=== PATIENT | female | born 1945 | race Caucasian/White ===

== ENCOUNTER → 2016-08-12 | Outpatient (CLI) | payer MEDICARE, OTHER ==
[~2016-08-12] MED LIST: ALPRAZOLAM0.25 MG PO; ASPIRIN 325MG325 MG PO; CLINORIL GENER150 MG PO; CLINORIL GENER200 MG PO; DIOVAN80 MG PO; FLAGYL500 MG PO; LEVAQUIN500 MG PO; LINZESS145 MCG PO; LOSARTAN POTASS50 MG PO; PENNSAID 2% TP; PLAVIX75 MG PO; SERTRALINE25 MG PO; SIMVASTATIN10 MG PO; SIMVASTATIN40 MG PO; [UNRECOGNIZED DRUG - OTHER] PO
--- NOTE | 2016-08-18 10:13 | RADIOLOGY REPORT PS360 ---
EXAM: CT LUNG LOW DOSE WO CONTRAST COMPARISON: None HISTORY: 70-year-old female with greater than 30 pack-year smoking history asymptomatic ORDERING PHYSICIAN: Orlando Mccoy MD PATIENT AGE: 70 years TECHNIQUE: The exam was performed on a GE Light Speed [address] scanner using 2.96 mGy CTDI. A low dose helical CT CHEST was performed on a multi-detector scanner The LDCT was performed in a facility that meets the criteria for the screening program. Data regarding this exam was submitted to ACR which is an approved registry. The order for this exam indicates that it came as a result of a lung cancer screening counseling shard decision-making visit that included all the elements required of such a visit including smoking cessation. The radiologist interpreting this exam meets the [facility] criteria for the LDCT lung cancer screening program. The exam is reported using the Lung-RADS classification scale and reported to the ACR registry. NOTE: THIS STUDY WAS PERFORMED FOR THE SPECIFIC PURPOSES OF LUNG CANCER SCREENING AND IS NOT AN ALTERNATIVE TO DIAGNOSTIC CHEST CT. RADIATION DOSE: CTDI vol(CT dose Index-volume) = 2.96mG DLP (Dose Length Product) = 128.47 mGcm FINDINGS: There are moderate centrilobular emphysematous changes with scattered calcified granulomas. Pleural-based nodular lesion involving the right lower lobe posteriorly at 3 x 1.2 cm. Soft tissue component of this lesion is somewhat more prominent than when compared to the previous exam. Previously this measured 2.7 x 0.8 cm. No suspicious nodules on the left. There are scattered small nodes in the mediastinum. Upper abdominal images are unremarkable. IMPRESSION: 1. Lung RADS Category: 4A suspicious. Pleural-based nodule in the left lower lobe appears slightly more prominent compared to the previous exam. 3 month follow-up recommended. 2. Other findings: Emphysema with pulmonary fibrotic changes and evidence of old granulomatous disease RECOMMENDATIONS: [address] of the chest without and with contrast
== END ==
LOC: RAD 12:36
DX: Z87.891 Personal history of nicotine dependence (principal); Z12.2 Encounter for screening for malignant neoplasm of respiratory organs
CPT/HCPCS: G0297

== ENCOUNTER → 2016-08-14 | Outpatient (CLI) | payer MEDICARE, OTHER ==
--- NOTE | 2016-08-19 10:52 | RADIOLOGY REPORT PS360 ---
. DIG MAMM-SCREEN [facility]AVA[facility] W/CAD CAD Screening ORDERING PHYSICIAN : Orlando Mccoy MD PATIENT AGE: 70 years GENDER: Female COMPARISON: Previous mammograms: September 2011, April 2015, March 2014, January 2013 INDICATION: Routine screening no new complaints. 70-year-old. No hormones. Previous excisional biopsy right breast. Family history. Mother with breast cancer 48 years old TECHNIQUE: Standard CC and MLO images were obtained. R2 CAD reviewed. FINDINGS: Moderately dense breasts with moderate scattered fibroglandular elements. Mild/Moderate asymmetry. Overall stable architecture and appearance compared to previous studies which are very helpful. IMPRESSION: No new areas of concern . stable mild asymmetry. . Follow-up one year recommended: BI-RADS CATEGORY: 2_Benign RECOMMENDED FOLLOWUP: 12M 12 MONTH FOLLOW-UP (A letter has been sent to the patient regarding results of the study.)
== END ==
LOC: RAD 09:21
DX: Z12.31 Encounter for screening mammogram for malignant neoplasm of breast (principal)
CPT/HCPCS: G0202

== ENCOUNTER 2017-01-27 10:23 | Day surgery (SDC) | payer MEDICARE, OTHER ==
[~2017-01-27] VITALS: Ht 177.8 cm; Wt 77.1 kg
[~2017-01-27 10:23] MED LIST changes: +ADULT LOW DOSE81 MG; +AMOXICILLIN875 MG; +HYDROCODONE/APA1 TA8 PO; +MACROBID100 M3 PO; +OSTERA TABLET1 EACH; +RANITIDINE HCL150 MG; +ZOFRAN ODT4 MG PO
--- NOTE | 2017-01-27 13:20 | Operative Note ---
Endoscopy Report Date: 01/27/17 Preoperative diagnosis: Constipation, history of polyps Procedure Type of procedure: Total colonoscopy with multiple polypectomy by cold biopsy forceps Indications: Patient is a 71-year-old white female referred by Dr. Humza Mccoy for colonoscopy. She has a history of chronic constipation which has become more severe recently. Patient states that "I have an awful time with my bowels". She says that "I have not had a good bowel movement for over a month". 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 This is been progressive. She is also has spinal radiation treatment. She is on Linzess, stool softeners, and GlycoLax. She did have a previous colonoscopy 3 years ago on 12/07/[address] Morales and had a couple of tubular adenomas removed. She had colonoscopy in 2008 and had 3 tubular adenomas removed. Consent was obtained the patient was taken to same-day surgery endoscopy procedure room. She was positioned in a lateral decubitus position. Anesthesia was achieved with anesthetic titration of propofol. Variable stiffness Olympus colonoscope was inserted via the anus. With profound difficulty it was ultimately able to be advanced to the cecum as she had an almost unbelievably atonic and floppy colon. Procedure took nearly 2 hours with multiple positions and abdominal pressure to reach the cecum. However, ileocecal valve and appendiceal orifice were clearly identified. Colonoscope was slowly withdrawn through the colon with careful surveillance. She did have some degree of scattered rare pandiverticulosis. There were several distal polyps in the sigmoid and these were removed with cold biopsy forceps. Majority of this appeared to be hyperplastic with numerous hyperplastic polyps in the distal sigmoid. Those that appear larger and more adenomatous were removed and placed in specimen containers based on the position within the colon. Several random biopsies were obtained within the sigmoid colon due to findings of possible mild colitis which could be reactive. Colonoscope was withdrawn. Total duration of the procedure was approximately 2 hours 10 minutes. Findings 1. Polyp 2. Diverticulosis 3. Other Findings (floppy atonic redundant colon) Follow-Up Follow-Up: Follow-up on histopathology. May need repeat colonoscopy in 5 years. at 1982
[2017-01-27 14:22] VITALS: BP 91/58
== END 2017-01-27 14:00 | disposition home or self-care (01) ==
LOC: SDC 10:23
PROVIDERS: Surgery
PROC: 0DBN8ZX Excision of Sigmoid Colon, Via Natural or Artificial Opening Endoscopic, Diagnostic (ICD-10-PCS; principal; 2017-01-27 11:00)
DX: Z12.11 Encounter for screening for malignant neoplasm of colon (principal); K57.90 Diverticulosis of intestine, part unspecified, without perforation or abscess without bleeding; K63.5 Polyp of colon